=== PATIENT | male | born 1950 | race Caucasian/White ===

== ENCOUNTER 2017-03-06 05:33 | Inpatient (IN) | payer OTHER ==
[~2017-03-06] VITALS: Ht 180.3 cm; Wt 106.2 kg
[~2017-03-06 05:33] MED LIST: AMLO10TA2 PO; VALS320T2 PO
[2017-03-06 06:07] VITALS: BP 174/89
[2017-03-06] MEDS ORDERED: LACTATED RINGERS 1,000 ML IV SCH (06:29)
[2017-03-06] MEDS ORDERED: EPINEPHRINE 1 MG/ML, 1ML ONE (07:14)
[2017-03-06] MEDS ORDERED: THROMBIN 5,000 UNIT VIAL TP ONE (07:14)
[2017-03-06] MEDS ORDERED: BUPIVACAINE/PF 0.25% ONE (07:14)
[2017-03-06] MEDS ORDERED: PROPOFOL 10 MG/ML, 20ML ONE ×2 (07:20→07:21)
[2017-03-06] MEDS ORDERED: CEFAZOLIN 1,000 MG ONE (07:21)
[2017-03-06] MEDS ORDERED: FENTANYL PF 250 MCG/5ML ONE (07:28)
[2017-03-06] MEDS ORDERED: ROCURONIUM 10 MG/ML ONE (07:29)
[2017-03-06] MEDS ORDERED: NEOSTIGMINE 1 MG/ML, 10ML ONE (07:29)
[2017-03-06] MEDS ORDERED: ONDANSETRON 2MG/ML, 2ML ONE (07:29)
[2017-03-06] MEDS ORDERED: GLYCOPYRROLATE 0.2MG/1ML, 5ML ONE (07:29)
[2017-03-06] MEDS ORDERED: SUCCINYLCHOLINE 20 MG/ML, 10ML ONE (07:29)
[2017-03-06] MEDS ORDERED: FENTANYL PF 100 MCG/2ML IV PRN (08:30)
[2017-03-06] MEDS ORDERED: LABETALOL 5MG/ML, 20ML IV PRN (08:30)
[2017-03-06] MEDS ORDERED: OXYcodone 5 MG/5 ML ORAL.SOL UDC PO PRN (08:30)
[2017-03-06] MEDS ORDERED: ONDANSETRON 2MG/ML, 2ML IVPush PRN (08:30)
[2017-03-06] MEDS ORDERED: FENTANYL PF 100 MCG/2ML ONE (11:21)
[2017-03-06] MEDS ORDERED: HYDROmorphone 1 MG/ML, 1ML ONE ×2 (12:09→12:51)
[2017-03-06] MEDS ORDERED: OXYcodone 5 MG/5 ML ORAL.SOL UDC ONE (12:10)
[2017-03-06] MEDS: HYDROmorphone 1 MG/ML, 1ML IV PRN ×3 (12:15→12:50)
[2017-03-06] MEDS ORDERED: PLEASE ENTER ALLERGIES MC SCH ×2 (13:30)
[2017-03-06] MEDS ORDERED: LACTATED RINGERS 500 ML IV PRN (14:00)
[2017-03-06] MEDS: PLEASE ENTER ALLERGIES MC SCH ×4 (14:00→22:00)
[2017-03-06] MEDS ORDERED: ONDANSETRON 2MG/ML, 2ML IV PRN (14:00)
[2017-03-06] MEDS: CEFAZOLIN PMX 1GM/50ML 50 ML IVPB SCH ×2 (15:30→23:55)
[2017-03-06] MEDS: D5%-0.45NACL+KCL 20MEQ 1,000 ML IV SCH ×2 (15:30→23:55)
[2017-03-06] MEDS: morphine SULFATE 10 MG/ML, 1ML IV PRN ×2 (15:30→21:43)
[2017-03-06 19:10] VITALS: BP 133/72
[2017-03-06] MEDS: HYDROcodone/APAP 10/325 MG TABLET PO PRN (22:34)
[2017-03-07 00:21] VITALS: BP 136/71
[2017-03-07] MEDS: morphine SULFATE 10 MG/ML, 1ML IV PRN ×2 (03:04→06:04)
[2017-03-07] MEDS: D5%-0.45NACL+KCL 20MEQ 1,000 ML IV SCH ×3 (03:20→18:28)
[2017-03-07 05:49] LABS: HEMATOCRIT 41.5 % (39.2-51.8)
[2017-03-07 05:59] LABS: BLOOD UREA NITROGEN 16 mg/dL (7-18)
[2017-03-07] MEDS: PLEASE ENTER ALLERGIES MC SCH ×6 (06:00→22:00)
[2017-03-07] MEDS: ENOXAPARIN 40 MG/0.4 ML SQ SCH (08:15)
[2017-03-07 09:07] VITALS: BP 157/72
[2017-03-07] MEDS: HYDROcodone/APAP 10/325 MG TABLET PO PRN ×2 (10:26→16:01)
[2017-03-07 15:00] VITALS: BP 165/69
[2017-03-07 19:24] VITALS: BP 148/67
[2017-03-08 02:02] VITALS: BP 154/74
[2017-03-08] MEDS: PLEASE ENTER ALLERGIES MC SCH ×2 (06:00)
[2017-03-08 06:12] LABS: HEMATOCRIT 35.2 % (39.2-51.8); HEMOGLOBIN 11.9 g/dL (13.7-18.0)
[2017-03-08 06:42] LABS: BLOOD UREA NITROGEN 12 mg/dL (7-18)
[2017-03-08] MEDS: D5%-0.45NACL+KCL 20MEQ 1,000 ML IV SCH ×2 (06:52→17:10)
[2017-03-08 08:22] VITALS: BP 140/65
[2017-03-08] MEDS: ENOXAPARIN 40 MG/0.4 ML SQ SCH (08:37)
[2017-03-08] MEDS: HYDROcodone/APAP 10/325 MG TABLET PO PRN (10:21)
[2017-03-08 11:40] VITALS: BP 110/66
[2017-03-08 14:07] VITALS: BP 120/62
[2017-03-08] MEDS ORDERED: D5%-0.45NACL+KCL 20MEQ 1,000 ML IV SCH (17:00)
[2017-03-08 19:24] VITALS: BP 118/60
[2017-03-08] MEDS: DOCUSATE 100 MG CAPSULE PO SCH (23:11)
[2017-03-08] MEDS: morphine SULFATE 10 MG/ML, 1ML IV PRN (23:12)
[2017-03-09 02:01] VITALS: BP 121/59
[2017-03-09] MEDS: D5%-0.45NACL+KCL 20MEQ 1,000 ML IV SCH (03:29)
[2017-03-09 06:34] VITALS: BP 132/65
[2017-03-09] MEDS ORDERED: HYDR-3240 PO (08:38)
[2017-03-09] MEDS ORDERED: DOCU-131 PO (08:39)
[2017-03-09] MEDS: ENOXAPARIN 40 MG/0.4 ML SQ SCH (09:39)
[2017-03-09] MEDS: DOCUSATE 100 MG CAPSULE PO SCH (09:39)
== END 2017-03-09 10:10 | disposition home or self-care (01) | DRG 707 ==
LOC: OUT 05:33 → 4NOR 13:26 → OUT 13:45
PROVIDERS: ADMIT Urology; ATTEND Urology
PROC: 8E0W4CZ Robotic Assisted Procedure of Trunk Region, Percutaneous Endoscopic Approach (ICD-10-PCS; 2017-03-06)
PROC: 0VT04ZZ Resection of Prostate, Percutaneous Endoscopic Approach (ICD-10-PCS; principal; 2017-03-06 07:30)
DX: C61 Malignant neoplasm of prostate (principal); K56.7 Ileus, unspecified; E29.1 Testicular hypofunction; I10 Essential (primary) hypertension; Z85.828 Personal history of other malignant neoplasm of skin; Z90.79 Acquired absence of other genital organ(s)
CPT/HCPCS: 36415; 80048; 82570; 85014; 85018; 86850; 86900; 88309; C1729; J0171; J0690; J1170; J1650; J2405; J2704; J2710; J3010; J3490; J7120; C1760; J0330; J2270; J3480